=== PATIENT | female | born 1955 | race Caucasian/White ===

== ENCOUNTER 2017-09-14 13:24 | Emergency (ER) | payer OTHER ==
[~2017-09-14 13:24] MED LIST: ACE3 PO; ALBU8.5H12 IH; CALC-703 PO; CALC500T6 PO; CETI-176 PO; CHOL400C10 PO; DOCU240C4 PO; DUL100/5PT INH; FLUT16SP19 NS; FOLI-68 PO; IBUP600T22 PO; KET10 PO; L.AC1CAP6 PO; LEVO-85 PO; LOR5/325 PO; METR-1 PO; MONT10TA4 PO; OMEG-11 PO; ONDA4TAB PO; ONDA4TAB97 PO; OXYC-865 PO; UBID100C44 PO; VENL37.53 PO; VITA1CAP46 PO
[2017-09-14] MEDS ORDERED: ALBU8.5H IH (13:32)
--- NOTE | 2017-09-14 13:37 | ER Report ---
History and Physical Time Seen By MD: 13:45 Hx. of Stated Complaint: HAD SLEEP STUDY DONE 2 DAYS AGO AND WAS SHOWN TO BE HYPOXIC DURING SLEEP. STARTED ON 2L NC HS. ASTHMA EXAC THAT HAS BEEN WORSENING OVER THE LAST WEEK - C/O CHEST TIGHTNESS "FROM BREATHING", BILAT JAW PAIN. HPI/ROS CHIEF COMPLAINT: Epigastric pain and shortness of breath HISTORY OF PRESENT ILLNESS: This is a 62-year-old female who presents to the emergency department for epigastric pain and shortness of breath. The patient states that the epigastric pain and shortness of breath began about 1-2 hours prior to arrival. Patient states that she was just resting when the pain developed she became somewhat anxious desatted come in for further evaluation. Patient states that she just recently had a sleep study home sleep study and was noted that she was hypoxic during the night which was concerning to the patient. Patient states that she is now using oxygen at night. Patient denies nausea, vomiting, rashes, headaches dysuria or cough symptoms. REVIEW OF SYSTEMS: Constitutional: No fever, no chills. Eyes: No discharge. ENT: No sore throat. Cardiovascular: As above. Respiratory: As above. Gastrointestinal: No abdominal pain, no vomiting. Genitourinary: No hematuria. Musculoskeletal: No back pain. Skin: No rashes. Neurological: No headache. Allergies: Coded Allergies: benzoin (Verified Allergy, Unknown, 09/14/17) Home Meds Reported Medications Albuterol Sulfate 90 Mcg/Act (PROAIR HFA 90 MCG/ACT) 8.5 Gm Hfa.aer.ad, 1-2 PUFF IH 3-4XD, INHALER 09/14/17 [place]-3 Fatty Acids/Fish Oil (FISH OIL 1,000 MG CAPSULE) 1 Each Capsule, 1 EACH PO DAILY, CAPSULE 04/13/17 Calcium Carbonate (CALCIUM) 500 Mg Tablet, 1000 MG PO 04/13/17 Venlafaxine Hcl (VENLAFAXINE HCL ER) 37.5 Mg Cap.er.24h, 37.5 MG PO QDAY 04/13/17 Cetirizine Hcl (ZYRTEC) 10 Mg Tablet, 10 MG PO QDAY, TAB 04/13/17 Fluticasone Prop 50 Mcg Ns (FLONASE 50 MCG NS) 16 Gm [place].susp, 2 SPRAYS NS QDAY, BOT 04/13/17 Mometasone/Formoterol (DULERA 100 MCG/5 MCG INHALER) 13 Gm Inh, 13 GM INH BID, INH 04/13/17 Montelukast Sodium (MONTELUKAST SODIUM) 10 Mg Tablet, 1 TAB PO DAILY, #60 01/11/15 Cholecalciferol (Vitamin D3) (VITAMIN D) 400 Unit Capsule, 400 UNIT PO, CAPSULE 04/17/13 Vitamin B Complex (VITAMIN B COMPLEX) 1 Each Capsule, 1 EACH PO, CAPSULE 04/17/13 Albuterol Sul Hfa 90 Mcg 8 Gm (VENTOLIN HFA 90 MCG 8 GM) 8.5 Gm Hfa.aer.ad, 1-2 PUFF IH 3-4XD Y for CONGESTION 04/17/13 Discontinued Reported Medications L.acidoph & Paracasei,B.lactis (Probiotic) 1 Each Capsule, 1 CAP PO DAILY 07/02/15 Past Medical/Surgical History Patient has a past medical and surgical history of asthma, seasonal allergies, pneumonia, colonoscopy, uterine 5 bright's, arthritis, wears glasses, hysterectomy, cholecystectomy, knee surgery, septum surgery. Reviewed Nurses Notes: Yes Hx Smoking: No Smoking Status: Never Smoker Exposure to Second Hand Smoke?: No (ONLY IN CHILDHOOD) Hx Alcohol Use: Yes Constitutional Vital Sign - Last 24 Hours 09/14/17 09/14/17 09/14/17 09/14/17 13:30 13:30 14:00 14:30 Temp 98.0 Pulse 83 80 69 Resp 18 10 14 B/P (MAP) 167/133 (144) 167/133 162/96 (118) 123/82 (96) Pulse Ox 94 94 93 87 O2 Delivery Room Air 09/14/17 09/14/17 09/14/17 09/14/17 15:00 15:30 16:30 17:00 Pulse 69 69 66 Resp 12 13 20 8 B/P (MAP) 148/96 (113) 134/95 (108) 144/99 (114) 139/88 (105) Pulse Ox 91 91 93 92 09/14/17 09/14/17 09/14/17 17:30 18:00 18:14 Pulse 64 69 Resp 8 5 B/P (MAP) 146/89 (108) 119/83 (95) 117/86 (96) Pulse Ox 94 93 Intake and Output 09/14/17 09/14/17 09/15/17 15:00 23:00 07:00 Intake Total 1000 ml Balance 1000 ml Physical Exam General Appearance: The patient is alert, has no immediate need for airway protection and no signs of toxicity. Eyes: Pupils equal and round no pallor or injection. ENT, Mouth: Mucous membranes are moist. Respiratory: There are no retractions, lungs are clear to auscultation, with diminished lung sounds in the right lung an. Cardiovascular: Regular rate and rhythm, no murmurs, clicks or rubs. Gastrointestinal: Abdomen is soft, epigastric discomfort with deep palpation otherwise unremarkable, no masses, bowel sounds normal. Neurological: Alert and oriented 4. Moving all x-rays. Following all commands. No focal neuro deficits. Skin: Warm and dry, no rashes. Musculoskeletal: Neck is supple non tender. Extremities are nontender, nonswollen and have full range of motion. DIFFERENTIAL DIAGNOSIS: After history and physical exam differential diagnosis was considered for abdominal pain including but not limited to appendicitis, cholecystitis, gastritis and urinary tract infection.shortness of breath including but not limited to pulmonary infectious process, COPD, asthma, pulmonary embolus and congestive heart failure. Medical Decision Making Data Points Result Diagram: 09/14/17 1345 09/14/17 1345 Laboratory Hematology Test 09/14/17 13:45 09/14/17 16:58 Red Blood Count 6.02 M/uL (4.17-5.56) Mean Corpuscular Volume 76.5 fL (80.0-96.0) Mean Corpuscular Hemoglobin 25.4 pg (26.0-33.0) Mean Corpuscular Hemoglobin Concent 33.2 g/dL (32.0-36.0) Red Cell Distribution Width 17.9 % (11.5-14.5) Mean Platelet Volume 7.8 fL (7.2-11.1) Neutrophils (%) (Auto) 65.5 % (39.4-72.5) Lymphocytes (%) (Auto) 24.5 % (17.6-49.6) Monocytes (%) (Auto) 7.7 % (4.1-12.4) Eosinophils (%) (Auto) 1.5 % (0.4-6.7) Basophils (%) (Auto) 0.8 % (0.3-1.4) Nucleated RBC Relative Count (auto) 0.1 /100WBC Neutrophils # (Auto) 5.4 K/uL (2.0-7.4) Lymphocytes # (Auto) 2.0 K/uL (1.3-3.6) Monocytes # (Auto) 0.6 K/uL (0.3-1.0) Eosinophils # (Auto) 0.1 K/uL (0.0-0.5) Basophils # (Auto) 0.1 K/uL (0.0-0.1) Nucleated RBC Absolute Count (auto) 0.01 K/uL D-Dimer Quantitative (PE/DVT) 0.68 ug/ml (0-0.50) Sodium Level 141 mmol/L (137-145) Potassium Level 3.7 mmol/L (3.5-5.0) Chloride Level 102 mmol/L (98-107) Carbon Dioxide Level 26 mmol/L (22-31) Blood Urea Nitrogen 13 mg/dl (7-18) Creatinine 0.80 mg/dl (0.52-1.04) Glomerular Filtration Rate Calc > 60.0 Random Glucose 99 mg/dl (75-110) Calcium Level 9.8 mg/dl (8.4-10.2) Total Bilirubin 0.4 mg/dl (0.2-1.3) Aspartate Amino Transf (AST/SGOT) 26 U/L (0-35) Alanine Aminotransferase (ALT/SGPT) 28 U/L (0-56) Alkaline Phosphatase 77 U/L (0-126) Total Protein 7.5 gm/dl (6.3-8.2) Albumin 4.2 g/dl (3.5-5.0) Troponin I < 0.012 ng/ml Chemistry Test 09/14/17 13:45 09/14/17 16:58 White Blood Count 8.2 k/uL (4.5-11.0) Red Blood Count 6.02 M/uL (4.17-5.56) Hemoglobin 15.3 g/dL (12.0-16.0) Hematocrit 46.1 % (34.0-47.0) Mean Corpuscular Volume 76.5 fL (80.0-96.0) Mean Corpuscular Hemoglobin 25.4 pg (26.0-33.0) Mean Corpuscular Hemoglobin Concent 33.2 g/dL (32.0-36.0) Red Cell Distribution Width 17.9 % (11.5-14.5) Platelet Count 304 K/uL (150-450) Mean Platelet Volume 7.8 fL (7.2-11.1) Neutrophils (%) (Auto) 65.5 % (39.4-72.5) Lymphocytes (%) (Auto) 24.5 % (17.6-49.6) Monocytes (%) (Auto) 7.7 % (4.1-12.4) Eosinophils (%) (Auto) 1.5 % (0.4-6.7) Basophils (%) (Auto) 0.8 % (0.3-1.4) Nucleated RBC Relative Count (auto) 0.1 /100WBC Neutrophils # (Auto) 5.4 K/uL (2.0-7.4) Lymphocytes # (Auto) 2.0 K/uL (1.3-3.6) Monocytes # (Auto) 0.6 K/uL (0.3-1.0) Eosinophils # (Auto) 0.1 K/uL (0.0-0.5) Basophils # (Auto) 0.1 K/uL (0.0-0.1) Nucleated RBC Absolute Count (auto) 0.01 K/uL D-Dimer Quantitative (PE/DVT) 0.68 ug/ml (0-0.50) Glomerular Filtration Rate Calc > 60.0 Calcium Level 9.8 mg/dl (8.4-10.2) Total Bilirubin 0.4 mg/dl (0.2-1.3) Aspartate Amino Transf (AST/SGOT) 26 U/L (0-35) Alanine Aminotransferase (ALT/SGPT) 28 U/L (0-56) Alkaline Phosphatase 77 U/L (0-126) Total Protein 7.5 gm/dl (6.3-8.2) Albumin 4.2 g/dl (3.5-5.0) Troponin I < 0.012 ng/ml Coagulation Test 09/14/17 13:45 D-Dimer Quantitative (PE/DVT) 0.68 ug/ml EKG/Imaging EKG Interpretation 12 lead EKG: Time of EKG, 1337. Rhythm: Normal sinus rhythm, ventricular rate 72 bpm. [place]: normal QRS: normal ST segments: No ST depression or elevation identified. 12 lead EKG: Repeat EKG time 1704. Rhythm: Normal sinus rhythm, ventricular rate 64 bpm. [place]: normal QRS: normal ST segments: No ST depression or elevation identified. Imaging Location: [facility] Patient: Iva Segura : 1955 Visit/Account:[id number] Date of Sevice: 09/14/2017 Examination: CHEST PA AND LAT Comparison: None. History: Chest pain. Findings: No consolidation, nodule, or peribronchial inflammation. No pneumothorax, edema, or effusion. Cardiac and hilar contour size is normal. Osseous structures are intact. IMPRESSION: No evidence of acute cardiopulmonary disease. Report Dictated By: Ruddy Amos MD at 09/14/2017 2:20 PM Report E-Signed By: Ruddy Amos MD at 09/14/2017 2:21 PM WSN:[id number] ED Course/Re-evaluation Clinical Indication for ER IV: IV Access ED Course The patient was omitted to room. A history of physical were obtained. Differential diagnoses were considered. An IV was started. A CBC, CMP, troponin , d-dimer were obtained. CBC CMP unremarkable. Troponin negative. Positive d- dimer. EKG negative. Two-view chest x-ray was negative for any acute cardiopulmonary processes. CTA times one was questionable as noted below Dr. Griffin suggested following up with a repeat CTA assuming the patient's kidney function was okay. I did review this with the patient and she was okay with proceeding with a repeat CTA. Patient was given a 1 L normal saline bolus. A repeat CT of the chest was negative for acute pulmonary embolus. There were some nodules noted I did update the patient of this and suggested following up with her primary care provider for reevaluation and possible follow-up CT. The repeat EKG was negative. Repeat troponin negative. I did review these results with the patient and her . I did tell the patient that she needs to follow up with her primary care provider to see if they can schedule an inpatient sleep study the patient exposed understanding. Patient had no other questions or concerns and was discharged home. Patient was relieved and pain- free at the time of discharge. 09/14/2017 4:07:41 pm I did speak with Dr. Griffin and she was unsure if the CTA was x-ray showing a pulmonary embolus therefore we elected to proceed with a 2nd CTA patient was in agreement with this. Decision to Disposition Date: September 14, 2017 Decision to Disposition Time: 18:06 Depart Departure Latest Vital Signs Vital Signs Date Time Temp Pulse Resp B/P (MAP) Pulse Ox O2 Delivery O2 Flow Rate FiO2 09/14/17 18:14 117/86 (96) 09/14/17 18:00 69 5 93 09/14/17 13:30 98.0 Room Air Impression: Primary Impression: Shortness of breath Additional Impression: Epigastric pain Condition: Improved Disposition: HOME OR SELF-CARE Referrals: MICHELLE LEON DO (PCP) Patient Instructions: Dyspnea (ED), Epigastric Pain (ED) Additional Instructions: Drink plenty of water. Get plenty of rest. Follow up with your pcp regarding the inpatient sleep study. Return to the ED for any other concerns or worsening symptoms. Problem Qualifiers ARACELI BATEMAN FREELANCE DESIGNER-BC September 14, 2017 13:37
[2017-09-14] MEDS ORDERED: ASPIRIN 81 MG CHEW PO ONE (14:00)
--- NOTE | 2017-09-14 14:01 | EKG ---
FACILITY: [facility] PATIENT NAME: GISELA MISHRA : [id number] MR: [id number] V: [id number] EXAM DATE: ORDERING PHYSICIAN: ARACELI BATEMAN TECHNOLOGIST: REBECA Ybarra Reason : SOB Blood Pressure : / mmHG Vent. Rate : 072 BPM Atrial Rate : 072 BPM P-R Int : 148 ms QRS Dur : 092 ms QT Int : 386 ms P-R-T Axes : -15 -21 041 degrees QTc Int : 422 ms Normal sinus rhythm Normal ECG When compared with ECG of 27-JUN-2015 21:45, No significant change was found Confirmed by RAJ MENDOZA ([id number]) on 09/15/2017 2:58:50 PM Referred By: MARIANELA Confirmed By:RAJ MENDOZA
[2017-09-14 14:06] LABS: PLATELET COUNT, AUTOMATED 304 K/uL (150-450)
--- NOTE | 2017-09-14 14:25 | RADIOLOGY IMAGING REPORT ---
FACILITY: [facility] [place] PATIENT NAME: Iva Segura : 1955 MR: [id number] V: [id number] EXAM DATE: ORDERING PHYSICIAN: ARACELI BATEMAN TECHNOLOGIST: Location: [facility] Patient: Iva Segura : 1955 Visit/Account:[id number] Date of Sevice: 09/14/2017 Examination: CHEST PA AND LAT Comparison: None. History: Chest pain. Findings: No consolidation, nodule, or peribronchial inflammation. No pneumothorax, edema, or effusio n. Cardiac and hilar contour size is normal. Osseous structures are intact. IMPRESSION: No evidence of acute cardiopulmonary disease. Report Dictated By: Ruddy Amos MD at 09/14/2017 2:20 PM Report E-Signed By: Ruddy Amos MD at 09/14/2017 2:21 PM WSN:[id number]
[2017-09-14] MEDS ORDERED: NS 0.9% 150 ML BAG 150 ML ONE ×2 (14:45→16:01)
[2017-09-14] MEDS ORDERED: IOPAMIDOL 76% 75 ML INFUS BTL 75 ML ONE (14:45)
[2017-09-14] MEDS ORDERED: NS(*) 0.9% 1000 ML BAG 1,000 ML IV ONE (15:35)
--- NOTE | 2017-09-14 15:36 | RADIOLOGY IMAGING REPORT ---
FACILITY: [facility] [place] PATIENT NAME: Iva Segura : 1955 MR: [id number] V: [id number] EXAM DATE: ORDERING PHYSICIAN: ARACELI BATEMAN TECHNOLOGIST: Location: [facility] Patient: Iva Segura : 1955 Visit/Account:[id number] Date of Sevice: 09/14/2017 CTA CHEST WW/O CNTR (PULM ANG) HISTORY: Shortness of breath, epigastric pain, elevated d-dimer ADDITIONAL HISTORY: None. TECHNIQUE: CTA chest with intravenous contrast. Axial imaging acquired following administration of IV contrast timed for maximum opacification of the pulmonary arterial vasculature. Slab 3-D MIP jennifer nstructed images were also created for further evaluation and interpretation. Reconstruction of the [facility] data set includes multiplanar 2-D in the sagittal and coronal planes and 3-D reconstructed lionel nal slab MIP series. 3-D images were created by the technologist. Dose Lowering Technique One of the following dose optimization techniques was utilized in the performance of this exam: Autom ated exposure control; adjustment of the mA and/or kV according to the patient's size; or use of an i terative reconstruction technique. Specific details can be referenced in the facility's radiology C T exam operational policy. CONTRAST: 75 mL Isovue-370 COMPARISON: CT abdomen and pelvis fibroid 20/10/2015 FINDINGS: Lungs/pleura: There is linear scarring versus atelectasis in the right middle lobe. There is a 3 mm noncalcified nodule medial aspect right upper lobe best seen on image 28 There is a five mm noncalcified nodule posterior aspect of the right lower lobe best seen on image 74 . Heart/vessels: There is no evidence of central pulmonary emboli. Some of the segmental and subsegme ntal arterial branches to the upper lobes are not ideally opacified with contrast. This could be rel ated to the contrast bolus although small volume of pulmonary emboli cannot be totally excluded Mediastinum/lymph nodes: Negative. Visualized upper abdomen: There are postsurgical changes from a cholecystectomy Bones/soft tissues: Scoliosis of the thoracic spine with mild spondylotic changes. Additional findings: None IMPRESSION: Linear scarring versus atelectasis the right middle lobe 3 mm noncalcified nodule medial aspect of the right upper lobe For nodules less than 6 mm in a low risk patient (minimal or absent smoking history, no history of ma lignancy), no routine followup is recommended. In a high risk patient (smoking or malignancy history) , optional 12 month followup can be obtained. 5 mm noncalcified nodule posterior aspect the right lower lobe that appears unchanged when compared t o the prior CT from June 27, 2015 There is no evidence of central pulmonary emboli. Some of the segmental and subsegmental arterial br anches to the upper lobes are not ideally opacified with contrast. This could be related to the cont rast bolus although small volume of pulmonary and bladder cannot be totally excluded on the basis of this examination. Results were called to ARACELI BATEMAN at 09/14/2017 3:31 PM. Report Dictated By: Linh Gray MD at 09/14/2017 3:15 PM Report E-Signed By: Linh Gray MD at 09/14/2017 3:31 PM WSN:[email or web address]
[2017-09-14] MEDS ORDERED: IOPAMIDOL 76% 100 ML INFUS BTL 100 ML ONE (16:00)
--- NOTE | 2017-09-14 16:34 | RADIOLOGY IMAGING REPORT ---
FACILITY: [facility] [place] PATIENT NAME: Iva Segura : 1955 MR: [id number] V: [id number] EXAM DATE: ORDERING PHYSICIAN: ARACELI BATEMAN TECHNOLOGIST: [facility] Patient: Iva Segura : 1955 Visit/Account:[id number] Date of Sevice: 09/14/2017 CTA CHEST WW/O CNTR (PULM ANG) HISTORY: Elevated d-dimer and shortness of breath, ADDITIONAL HISTORY: None. TECHNIQUE: CTA chest with intravenous contrast. Axial imaging acquired following administration of IV contrast timed for maximum opacification of the pulmonary arterial vasculature. Slab 3-D MIP jennifer nstructed images were also created for further evaluation and interpretation. Reconstruction of the s [facility] data set includes multiplanar 2-D in the sagittal and coronal planes and 3-D reconstructed lionel nal slab MIP series. 3-D images were created by the technologist. Dose Lowering Technique One of the following dose optimization techniques was utilized in the performance of this exam: Autom ated exposure control; adjustment of the mA and/or kV according to the patient's size; or use of an i terative reconstruction technique. Specific details can be referenced in the facility's radiology C T exam operational policy. CONTRAST: 100 mL Isovue-370 COMPARISON: CT of the chest performed earlier in the day FINDINGS: Lungs/pleura: Again noted is linear scarring versus atelectasis in the right middle lobe. There is a 3 mm noncalcified nodule medial aspect the right upper lobe best seen on image 26 of serie s 5. There is a 5 mm subpleural nodule posterior aspect of the right lower lobe best seen on image 8 7 of series 5 Heart/vessels: There is better opacification of the pulmonary arterial tree with no evidence of pulm onary emboli demonstrated Mediastinum/lymph nodes: Negative. Visualized upper abdomen: Postsurgical changes from a cholecystectomy Bones/soft tissues: Scoliosis of the thoracic spine with mild spondylotic changes Additional findings: None IMPRESSION: There is better opacification of the pulmonary arterial tree with no demonstration of pulmonary embol i at this time. 3 mm noncalcified nodule medial aspect of the right upper lobe For nodules less than 6 mm in a low ri sk patient (minimal or absent smoking history, no history of malignancy), no routine followup is jennifer mmended. In a high risk patient (smoking or malignancy history), optional 12 month followup can be ob tained. 5 mm noncalcified nodule posterior aspect right lower lobe stable when compared to prior study from F ebrust 2015 Report Dictated By: Linh Gray MD at 09/14/2017 4:24 PM Report E-Signed By: Linh Gray MD at 09/14/2017 4:29 PM WSN:[id number]
--- NOTE | 2017-09-14 17:21 | EKG ---
FACILITY: [facility] [place] PATIENT NAME: GISELA MISHRA : [id number] MR: [id number] V: [id number] EXAM DATE: ORDERING PHYSICIAN: ARACELI BATEMAN TECHNOLOGIST: LYNETTE Ybarra Reason : SOB Blood Pressure : / mmHG Vent. Rate : 064 BPM Atrial Rate : 064 BPM P-R Int : 178 ms QRS Dur : 092 ms QT Int : 404 ms P-R-T Axes : -06 -13 037 degrees QTc Int : 416 ms Normal sinus rhythm Normal ECG When compared with ECG of 14-SEP-2017 13:37, No significant change was found Confirmed by RAJ MENDOZA ([id number]) on 09/15/2017 2:59:24 PM Referred By: MARIANELA Confirmed By:RAJ MENDOZA
[2017-09-14 18:14] VITALS: BP 117/86
== END 2017-09-14 18:22 | disposition home or self-care (01) ==
LOC: ER 13:33
DX: R91.1 Solitary pulmonary nodule (principal); R10.13 Epigastric pain; R06.02 Shortness of breath
CPT/HCPCS: 36415; 71046; 71275; 84484; 85025; 85379; 93005; 99284; J7030; Q9967; 82040; 82247; 82310; 82374; 82435; 82565; 82947; 84075; 84132; 84155; 84295; 84450; 84460; 84520

== ENCOUNTER → 2017-12-15 | Outpatient (CLI) | payer OTHER ==
[~2017-12-15] MED LIST changes: +ALBU8.5H IH; +UBID100C34 PO; -UBID100C44 PO
== END ==
LOC: RESP 00:50
PROVIDERS: ATTEND Family Medicine
DX: G47.33 Obstructive sleep apnea (adult) (pediatric) (principal)

== ENCOUNTER → 2018-04-13 | Outpatient (CLI) | payer OTHER ==
--- NOTE | 2018-04-14 09:52 | RADIOLOGY IMAGING REPORT ---
FACILITY: [facility] [place] PATIENT NAME: GISELA MISHRA : [id number] MR: [id number] V: [id number] EXAM DATE: ORDERING PHYSICIAN: MICHELLE LEON TECHNOLOGIST: Yari Chavarria PROCEDURE:BILATERAL DIGITAL SCREENING MAMMOGRAM WITH CAD ASSISTED INTERPRETATION & 3D TOMOSYNTHESIS COMPARISON:Prior mammograms 06/04/16, 04/10/13. INDICATIONS:SCREENING FINDINGS: The breasts are almost entirely fatty. The parenchymal pattern has remained stable allowing for difference in mammographic technique & patient positioning. DIAGNOSTIC CATEGORY 1--NEGATIVE. RECOMMENDATIONS: ROUTINE MAMMOGRAM AND CLINICAL EVALUATION. IMPRESSION: BIRADS 1: Negative. No significant abnormality is seen. Dictated by: Linh Gray M.D. on 04/13/2018 at 11:18 Transcribed by: SANTIAGO on 04/13/2018 at 13:30 Approved by: Linh Gray M.D. on 04/14/2018 at 9:51 [facility]
== END ==
LOC: MAMO 01:11
PROVIDERS: ATTEND Family Medicine
DX: Z12.31 Encounter for screening mammogram for malignant neoplasm of breast (principal)
CPT/HCPCS: 77063; 77067